=== PATIENT | female | born 1960 | race Caucasian/White ===

== ENCOUNTER 2016-08-08 13:50 | Inpatient (IN) | payer OTHER ==
[2016-08-08] MEDS ORDERED: VENTOLIN HFA INH PRN (19:38)
[2016-08-08 20:07] LABS: MANUAL DIFF NEEDED? NO
[2016-08-08 20:14] LABS: BASO% 0.4 % (0.0-0.8); EOS# 0.37 X1000 (0.0-0.7); EOS% 3.3 % (0.0-10.0); HEMATOCRIT 35.7 % (37.0-47.0); HEMOGLOBIN 11.6 g/dL (12.0-16.0); LYMPH# 1.86 X1000 (1.2-3.4); LYMPH% 16.6 % (20.5-51.1); MCH 31.4 PG (27-31); MCHC 32.5 g/dL (33-37); MCV 96.5 FL (81-99); MONO# 1.21 X1000 (0.11-0.59); MONO% 10.8 % (1.7-9.3); MPV 9.4 FL (7.4-10.4); NEUT% 68.9 % (42.2-75.2); PLT 251 X1000 (130-400)
[2016-08-08 20:28] LABS: INR 1.04
[2016-08-08] MEDS ORDERED: PNEUMOVAX 23 IM ONE (20:30)
[2016-08-08 20:34] LABS: AGAP 12; ALBUMIN 3.1 g/dL (3.5-5.0); ALKALINE PHOSPHATASE 101 U/L (32-104); BUN 13 mg/dL (8-22); CALCIUM 9.1 mg/dL (8.8-10.2); CHLORIDE 104 mmol/L (98-107); COSMO 278; GOT 27 U/L (10-30); GPT 8 U/L (10-36); POTASSIUM 4.3 mmol/L (3.5-5.1); SODIUM 139 mmol/L (136-145); TCO2 23 mmol/L (25-35); TOTAL BILIRUBIN 0.86 mg/dL (0.20-1.00); TOTAL PROTEIN 7.1 g/dL (6.3-8.3)
[2016-08-08] MEDS ORDERED: MOEXIPRIL PO SCH (21:00)
[2016-08-08] MEDS ORDERED: [UNRECOGNIZED DRUG - OTHER] PO SCH (21:00)
[2016-08-08] MEDS ORDERED: HYDROCHLOROTHIAZIDE PO SCH (21:00)
[2016-08-08] MEDS: HYDROCHLOROTHIAZIDE PO SCH (21:34)
[2016-08-08] MEDS: ALBUMIN 25% IV SCH (21:34)
[2016-08-08] MEDS: PROTONIX IV SCH (21:34)
[2016-08-08] MEDS: SODIUM CHLORIDE 0.9% INJ SCH (21:34)
[2016-08-08] MEDS: ICAR-C PO SCH (21:34)
[2016-08-08] MEDS: CARAFATE PO SCH (21:35)
[2016-08-08] MEDS: LOPRESSOR PO SCH (21:35)
[2016-08-08] MEDS: REGLAN PO SCH (21:35)
[2016-08-08] MEDS: UNIVASC PO SCH (21:41)
[2016-08-08] MEDS: HUMALOG SUBQ SCH (21:45)
--- NOTE | 2016-08-08 22:26 | HISTORY AND PHYSICAL ---
CHIEF COMPLAINT: Dyspnea on exertion. Weight gain for 30 pounds. Abdominal distention. HISTORY OF PRESENT ILLNESS: She is a 56-year-old white female with a known history of cirrhosis of liver associated with tense ascites. Not able to improve with outpatient medical management. She has been admitted to the hospital for therapeutic paracentesis. She was also given IV albumin followed by Lasix. PAST MEDICAL HISTORY: Cirrhosis due to NGUYEN, depression, type 2 diabetes, metabolic syndrome, gout, acid reflux disease, hyperlipidemia. PAST SURGICAL HISTORY: Cholecystectomy. x2. Bilateral carpal tunnel surgery. MEDICATIONS: Allopurinol 300 daily, aspirin 81 mg daily, Lasix 40 mg daily, glimepiride 1 mg daily, hydrochlorothiazide 12.5 daily, Januvia 100 daily, metformin 500, 2 tablets p.o. b.i.d., Reglan 10 mg p.o. b.i.d., metoprolol 50, 1 tab p.o. b.i.d., Univasc 15 mg daily, Prilosec 20 daily, Zofran as needed, Paxil 20 daily, potassium 10 mEq daily, pravastatin 40 daily, Aldactone 100 p.o. b.i.d. ALLERGIES: Not known. SOCIAL HISTORY: for 8 years. Two children. Disabled. Lives in [place]. No smoking. No drug abuse. No alcohol abuse. FAMILY HISTORY: Mom is a 76-year-old with a history of stroke, TIAs. Father 78 with hypertension and heart disease. HEALTH MAINTENANCE: Influenza vaccine refused, colonoscopy [address] Cherry. REVIEW OF SYSTEMS: HEENT: No headache. No vision problem. No earache. No sore throat. Neck: No goiter. No lymphadenopathy. No bruit. Cardiopulmonary: No chest pain, shortness of breath. No PND, no orthopnea. GI: Abdominal distention, tense ascites. Dyspnea on exertion. : No history of hesitancy, frequency. Slight swelling of feet. No joint pain. Neurologic: No focal symptoms or weakness. PHYSICAL EXAMINATION: VITAL SIGNS: Stable. Weight is 265 pounds. Heavyset. HEENT: Atraumatic, normocephalic. Pupils equal, react to light. TMs are normal. Nose and throat within normal limits. NECK: Supple. No lymphadenopathy. No goiter. CHEST: Bilateral air entry. Scattered wheezing. HEART: Sounds are regular. ABDOMEN: Belly is soft, obese, tense ascites. Exam is suboptimal. EXTREMITIES: No peripheral edema, cyanosis. NEUROLOGIC: No obvious neurological deficits. INVESTIGATIONS: CBC: White cell count 11, hematocrit 35, platelet count 251,000. PT/INR is normal. SMA 7 is normal. LFTs were normal. Ammonia 110. ASSESSMENT AND PLAN: 1. A 56-year-old white female, admitted to the hospital with tense ascites due to cirrhosis. The plan is therapeutic paracentesis. 2. Intravenous albumin followed by Lasix. 3. Optimize the treatment by nadolol and Lasix, Aldactone. 4. Ammonia encephalopathy. We will start on Xifaxan 550 p.o. b.i.d. and lactulose as needed. 5. Reconcile home medications and we will follow up.
[2016-08-08] MEDS: LASIX IV SCH (23:11)
--- NOTE | 2016-08-09 08:05 | Diag Imaging Result Document ---
PROCEDURE NAME: ABDOMEN FLAT/UPRIGHT - 08/08/2016 X-RAY ABDOMEN 2 VIEWS, 08/08/2016: COMPARISON: None. FINDINGS: The exam is extremely poor due to portable technique and the patient's very large body size. There are cholecystectomy clips. No obvious bowel obstruction. IMPRESSION: No obvious bowel obstruction.
[2016-08-09] MEDS: HUMALOG SUBQ SCH ×4 (08:10→23:16)
[2016-08-09] MEDS: REGLAN PO SCH ×4 (08:10→23:16)
[2016-08-09] MEDS: CARAFATE PO SCH ×4 (08:10→23:16)
[2016-08-09] MEDS: ICAR-C PO SCH ×2 (10:31→23:16)
[2016-08-09] MEDS: ZYLOPRIM PO SCH (10:31)
[2016-08-09] MEDS: LOPRESSOR PO SCH ×3 (10:31→23:18)
[2016-08-09] MEDS: PAXIL CR PO SCH (10:31)
[2016-08-09] MEDS: HYDROCHLOROTHIAZIDE PO SCH ×2 (10:32→23:15)
[2016-08-09] MEDS: UNIVASC PO SCH ×2 (10:32→23:15)
[2016-08-09] MEDS: JANUVIA PO SCH (10:32)
[2016-08-09] MEDS: GLUCOPHAGE PO SCH ×2 (10:32→17:45)
[2016-08-09] MEDS: AMARYL PO SCH (10:33)
[2016-08-09] MEDS: LACTULOSE PO SCH ×2 (10:33→23:17)
[2016-08-09] MEDS: MIRALAX PO SCH (10:33)
[2016-08-09 11:32] LABS: TOTAL PROT BODY FLUID 2.6 g/dL
--- NOTE | 2016-08-09 14:03 | Diag Imaging Result Document ---
PROCEDURE NAME: US PARACENTESIS - 08/09/2016 ULTRASOUND-GUIDED PARACENTESIS: COMPARISON: 03/08/2016. TECHNIQUE: The risks and benefits of the procedure were discussed with the patient. All questions were answered. Written and verbal informed consent was obtained. Ultrasound scanning demonstrated large ascites. The right lower quadrant was prepped and draped in sterile fashion. Anesthesia was achieved with injection of 8 mL of 1% lidocaine. The paracentesis catheter was advanced without difficulty until the return of ascites. 14.35 L of fluid was aspirated using evacuated bottles. The catheter was withdrawn intact. The patient reported no symptoms from the procedure. IMPRESSION: Successful and uncomplicated ultrasound-guided paracentesis.
[2016-08-09] MEDS: FLONASE NAS SCH (18:05)
[2016-08-09] MEDS: LASIX IV SCH (23:13)
[2016-08-09] MEDS: ALBUMIN 25% IV SCH (23:14)
[2016-08-09] MEDS: SODIUM CHLORIDE 0.9% INJ SCH (23:14)
[2016-08-09] MEDS: PROTONIX IV SCH (23:14)
[2016-08-10] MEDS: CARAFATE PO SCH ×4 (03:26→20:11)
[2016-08-10] MEDS: HUMALOG SUBQ SCH ×4 (06:22→21:00)
[2016-08-10] MEDS: REGLAN PO SCH ×4 (06:22→20:10)
[2016-08-10] MEDS: FLONASE NAS SCH (08:06)
[2016-08-10] MEDS: ICAR-C PO SCH ×2 (08:07→20:11)
[2016-08-10] MEDS: MIRALAX PO SCH (08:07)
[2016-08-10] MEDS: JANUVIA PO SCH (08:07)
[2016-08-10] MEDS: AMARYL PO SCH (08:07)
[2016-08-10] MEDS: PAXIL CR PO SCH (08:08)
[2016-08-10] MEDS: HYDROCHLOROTHIAZIDE PO SCH ×2 (08:08→20:09)
[2016-08-10] MEDS: UNIVASC PO SCH ×2 (08:08→20:11)
[2016-08-10] MEDS: ZYLOPRIM PO SCH (08:08)
[2016-08-10] MEDS: GLUCOPHAGE PO SCH ×2 (08:08→17:41)
[2016-08-10] MEDS: LOPRESSOR PO SCH ×2 (08:08→20:11)
[2016-08-10] MEDS: LACTULOSE PO SCH ×2 (08:12→09:00)
[2016-08-10] MEDS: ALBUMIN 25% IV SCH (20:12)
[2016-08-11] MEDS: SODIUM CHLORIDE 0.9% INJ SCH (00:10)
[2016-08-11] MEDS: LASIX IV SCH (00:10)
[2016-08-11] MEDS: PROTONIX IV SCH (00:10)
[2016-08-11] MEDS: CARAFATE PO SCH ×4 (02:37→19:46)
[2016-08-11 06:04] LABS: MANUAL DIFF NEEDED? NO
[2016-08-11 06:08] LABS: BASO% 0.2 % (0.0-0.8); EOS# 0.33 X1000 (0.0-0.7); EOS% 3.8 % (0.0-10.0); HEMATOCRIT 33.3 % (37.0-47.0); HEMOGLOBIN 10.9 g/dL (12.0-16.0); LYMPH# 2.66 X1000 (1.2-3.4); LYMPH% 30.7 % (20.5-51.1); MCH 31.3 PG (27-31); MCHC 32.7 g/dL (33-37); MCV 95.7 FL (81-99); MONO# 1.04 X1000 (0.11-0.59); MPV 9.8 FL (7.4-10.4); NEUT% 53.3 % (42.2-75.2); PLT 188 X1000 (130-400); RBC 3.48 XMIL (4.2-5.4)
[2016-08-11] MEDS: REGLAN PO SCH ×4 (06:30→20:00)
[2016-08-11 06:41] LABS: CALCIUM 9.4 mg/dL (8.8-10.2); POTASSIUM 3.5 mmol/L (3.5-5.1)
[2016-08-11] MEDS: HUMALOG SUBQ SCH ×3 (07:24→16:23)
[2016-08-11] MEDS: HYDROCHLOROTHIAZIDE PO SCH (08:00)
[2016-08-11] MEDS: FLONASE NAS SCH (08:00)
[2016-08-11] MEDS: JANUVIA PO SCH (08:01)
[2016-08-11] MEDS: LOPRESSOR PO SCH ×2 (08:01→20:00)
[2016-08-11] MEDS: GLUCOPHAGE PO SCH ×2 (08:01→16:22)
[2016-08-11] MEDS: AMARYL PO SCH (08:01)
[2016-08-11] MEDS: PAXIL CR PO SCH (08:01)
[2016-08-11] MEDS: UNIVASC PO SCH ×2 (08:01→08:52)
[2016-08-11] MEDS: ZYLOPRIM PO SCH (08:01)
[2016-08-11] MEDS: ICAR-C PO SCH ×2 (08:01→20:00)
[2016-08-11] MEDS: LACTULOSE PO SCH (08:03)
[2016-08-11] MEDS: LASIX PO SCH (10:55)
[2016-08-12] MEDS: HUMALOG SUBQ SCH ×2 (00:04→06:54)
[2016-08-12] MEDS: PROTONIX IV SCH (01:04)
[2016-08-12] MEDS: CARAFATE PO SCH ×2 (01:04→08:03)
[2016-08-12] MEDS: SODIUM CHLORIDE 0.9% INJ SCH (01:04)
[2016-08-12] MEDS: REGLAN PO SCH ×2 (05:50→06:55)
[2016-08-12 07:45] VITALS: BP 105/46
[2016-08-12] MEDS: DULERA 200 MCG/5 MCG INHALER IH SCH ×3 (07:58→09:46)
[2016-08-12] MEDS: JANUVIA PO SCH (07:59)
[2016-08-12] MEDS: ZYLOPRIM PO SCH (08:01)
[2016-08-12] MEDS: LOPRESSOR PO SCH (08:01)
[2016-08-12] MEDS: UNIVASC PO SCH (08:01)
[2016-08-12] MEDS: LASIX PO SCH (08:02)
[2016-08-12] MEDS: AMARYL PO SCH (08:02)
[2016-08-12] MEDS: ICAR-C PO SCH (08:03)
[2016-08-12] MEDS: GLUCOPHAGE PO SCH (08:03)
[2016-08-12] MEDS: PAXIL CR PO SCH (08:03)
[2016-08-12] MEDS: FLONASE NAS SCH (08:05)
[2016-08-12] MEDS: LACTULOSE PO SCH (08:05)
[2016-08-12] MEDS ORDERED: PNEUMOVAX 23 IM ONE (08:42)
[2016-08-12] MEDS ORDERED: UNIVASC PO SCH (09:00)
[2016-08-12] MEDS ORDERED: ALDACTONE PO SCH (09:00)
--- NOTE | 2016-08-13 12:20 | DISCHARGE SUMMARY ---
ADMISSION DATE: 08/08/2016 DISCHARGE DATE: 08/12/2016 DISCHARGING DIAGNOSES: Shortness of breath due to intractable refractory ascites and tense ascites. OTHER DIAGNOSES: 1. Ascites due to portal hypertension from serum albumin ascitic gradient. More than 1.1 associated with NGUYEN. 2. Type 2 diabetes. 3. Metabolic syndrome. 4. Depression. 5. Gout. 6. Acid reflux disease. 7. Hyperlipidemia. PROCEDURES: 1. IV albumin followed by Lasix. 2. Therapeutic paracenteses 14 L. BRIEF HISTORY: Please see the H and P that was done on 08/08/2016. In brief she is a 56-year-old white female, was admitted to the hospital with intractable ascites associated with shortness of breath, and gained 30 pounds. Patient is seeing the associate creative director in [place]. HOSPITAL COURSE: She was started on fluid restrictions, daily weights, low-salt and IV albumin followed by Lasix. Ammonia level is 110. She was given lactulose. PT/INR is normal. Patient had a therapeutic paracentesis done by the radiologist, removed 14 L. She slightly became hypotensive. I have discontinued her hydrochlorothiazide and decreased her Univasc. Patient was started on Aldactone 200 mg per day. After diuresis she lost about 30 pounds. Discharge weight is 226 pounds. LABS: CBC: White cell count 8.6, hematocrit 33, platelets 188,000. PT 11, INR 1.0. SMA 7: Sodium 139, potassium 4.3, chloride 104, BUN 13, creatinine 0.8, calcium 9.1. AST, ALT normal. Ammonia 110. ProBNP 192. Total protein 7.1, albumin 3.1. Ascitic albumin 1.1. Serum ascitic albumin gradient 2.0. Fluid total protein is 2.5. The rest of the hospital course was uneventful. DISCHARGE INSTRUCTIONS: 1. Pneumococcal vaccine 08/12/2016. 2. Fluid restriction 30 ounces a day. 3. Daily weights. Discharging weight is 226 pounds. Univasc 7.5 mg daily, Aldactone 100 mg p.o. daily, slowly increased to 200 daily. Lactulose 30 mg daily, Lipitor 40 daily, Icar C Plus 1 tab drip p.o. once daily. Reglan 10 mg p.o. a.c. and at bedtime. Prilosec 20 daily, Januvia 100 daily, glipizide 1 mg daily, Paxil 12.5 daily, metoprolol 50 p.o. b.i.d., allopurinol 300 daily, Lasix 40 daily, metformin 500 p.o. b.i.d., albuterol inhaler as needed. Dulera 1 puff b.i.d. Follow up in the office next week as well as associate creative director in [place].
== END 2016-08-12 10:41 | disposition home or self-care (01) | DRG 441 ==
LOC: DIRADM 13:50 → 4N 18:07
PROVIDERS: ADMIT Internal Medicine; ATTEND Internal Medicine
PROC: 0W9G3ZZ Drainage of Peritoneal Cavity, Percutaneous Approach (ICD-10-PCS; principal; 2016-08-09)
DX: K76.6 Portal hypertension (principal); G93.49 Other encephalopathy; I95.9 Hypotension, unspecified; R18.8 Other ascites; E88.81 Metabolic syndrome and other insulin resistance; K74.60 Unspecified cirrhosis of liver; K75.81 Nonalcoholic steatohepatitis (NASH); Z68.42 Body mass index [BMI] 45.0-49.9, adult; E11.9 Type 2 diabetes mellitus without complications; E78.5 Hyperlipidemia, unspecified; M10.9 Gout, unspecified; K21.9 Gastro-esophageal reflux disease without esophagitis; R63.5 Abnormal weight gain; F32.9 Major depressive disorder, single episode, unspecified; Z79.899 Other long term (current) drug therapy; Z79.82 Long term (current) use of aspirin; Z79.84 Long term (current) use of oral hypoglycemic drugs; Z82.3 Family history of stroke; Z82.49 Family history of ischemic heart disease and other diseases of the circulatory system
CPT/HCPCS: 49083; 74020; 80048; 80053; 82042; 82140; 82948; 83880; 84157; 85025; 85610; 88112; 90732; C9113; J1940; P9047; S0164